=== PATIENT | male | born 1985 | race Caucasian/White ===

== ENCOUNTER 2020-07-16 14:00 | Outpatient (RCR) | payer OTHER, SELFPAY ==
--- NOTE | 2020-05-23 17:48 | MHC.PT.EP ---
[facility] [place] [facility] [place] [facility] [place] [facility] [address] Augusta Hinojosa [address] [phone] F: [phone] F: [phone] F: [phone] F: [phone] Physical Therapy Plan of Care Date of Evaluation: 05/23/20 Date of Surgery: Diagnosis: This is a 34 yo male presenting to skilled PT with a script for injury of low back. Assessment: This is a 34 yo male presenting to skilled PT with a script for injury of low back. Patient presented to the walk in clinic with a lower back injury that occurred on an overnight shift on 05/08/20. 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 Once he bent forward and lifted he felt the pain right away. Pain was located R side low back, posteriorly throughout the hamstrings B and he had R foot numbness (that ran along lateral aspect of the R foot). He reports that the numbness in the foot comes and goes now with sitting in a chair but in general he has been feeling improvement since incident. He also reports that his upper back is mainly stiff as of right now and he has low back symptoms. He was provided flexeril for muscle spasms but uses as needed as he does not like the feeling. He has mainly been using lidocaine patches and advil with light stretching for pain management. Assessment reveals pain that ranges to about a 3 at the worst. He is limited in end range hip mobility, decreased RLE strength and demos s/s as well as + special tests that are consistent with lumbar disc herniation and ? SIJ involvement. He also reports a past history of lumbar disc herniation as well. He is hypomobile in T-spine and lumbar spine and is tender along lumbar paraspinals. He is functionally limited in bending, lifting and normal work related tasks as well as home tasks of lifting daughter and gross movements in AM. At the eval he did not have the numbness in his foot was educated on [facility] extension program to trial for HEP. He is an excellent candidate for skilled PT 2x/wk for 5wks. Frequency and Duration: The patient will be seen 2x/wk for 5wks Short Term Goals: I in HEP Pain remains centralized for 1wk Demo good squatting without cuing from PT [facility] Goals: Demos functional BLE ROM and strength Improve oswestry by at least 10 points Demo good core control with dynamic work Undergo lift test without pain Return to work in full Treatment Plan: Modalities to reduce pain, spasms and effusion. Manual therapy to restore motion and function. Therapeutic exercise to improve strength and flexibility. Neuromuscular re-education for posture and balance. Therapeutic activities to return to functional activities of daily living. Electronically signed by: Laura Cuellar PT Please sign and return to therapist. Thank you for your referral.
--- NOTE | 2020-07-20 14:40 | MHC.PT.DC ---
[facility] [place] [facility] [place] [facility] [place] [facility] [address] Augusta Hinojosa [address] [phone] F: [phone] F: [phone] F: [phone] F: [phone] Physical Therapy Discharge Report Diagnosis: Injury of low back. Date of Surgery: NA Date of Evaluation: 05/23/20 Date of Discharge: 07/20/20 Treatments to Date: 13 Cancellations to Date: 2 No Shows to Date: 0 Discharge Status: Improved Function Independent with HEP Discharge Summary: Pt with some improvement with mechanical traction for first 2 sessions and then plateaued. He was unable to attend final visit due to scheduling issue and reports will d/c. He is d/c to I HEP at this time. Electronically signed by: Dejah Berger PT Please sign and return to therapist. Thank you for your referral.
== END 2020-07-20 14:41 | disposition home or self-care (01) ==
LOC: HO.PTCHIC 14:00
PROVIDERS: PCP Internal Medicine; Visit Provider Nurse Practitioner Family
DX: S39.92XD Unspecified injury of lower back, subsequent encounter (principal)
CPT/HCPCS: 97012; 97110; 97140; 97161; 97530

== ENCOUNTER 2022-11-20 14:27 | Outpatient (AMB) | payer OTHER, SELFPAY ==
--- NOTE | 2022-11-20 14:53 | AM.OFFWIN_ITS ---
Intake Vital Signs 11/20/22 14:56 BP 138/100 H Blood Pressure Location Rt brachial Position Sitting Pulse 82 Pulse Source Pulse Oximeter Temp 98.2 F Temp Source Temporal Artery Scan Pulse Oximetry (%) 95 Oxygen Delivery Method Room Air Intake Visit Reasons: EP STD screening (mirta) Intake Note: Patient here because he would like to be re checked for STDs. Patient Tobacco Use Status: Never used Tobacco Do you need a note to return to daycare/school/sports/work: No HPI HPI Comments History of Present Illness Details 29-year-old male who presents for STI screening. Patient reportedly had unprotected sex back in April and CT tested shortly thereafter but was told that given that it was within 4 months he might need a recheck for his HIV and hepatitis. He denies any symptoms at this time. [facility] Social History Patient Tobacco Use Status: Never used Tobacco Review of Systems Const All systems reviewed & are unremarkable except as noted in HPI and below Reports as per HPI Physical Exam Vital Signs: Last Vital Signs Temp 98.2 F 11/20/22 14:56 Pulse 82 11/20/22 14:56 BP 138/100 H 11/20/22 14:56 Pulse Ox 95 11/20/22 14:56 Oxygen Delivery Method Room Air 11/20/22 14:56 Const General: cooperative, well developed and alert Assessment & Plan Assessment & Plan (1) Routine screening for STI (sexually transmitted infection): Code(s): Z11.3 - Encounter for screening for infections with a predominantly sexual mode of transmission Plan Patient presents for STI screening no concerning findings on examination. Discharge instructions, follow up and treatment are discussed with patient in my usual fashion. Alternatives in treatment are also discussed. The patient will return for worsening symptoms or as needed. Advised that any labs/imaging ordered will be followed up on and contact made if further treatment needed. Counseled that patient's condition may require further evaluation and/or treatment. Symptoms of concern for worsening disorder discussed in detail in my customary manner. Patient does verbalize understanding of the plan, there are no apparent barriers to communication. The patient is given the opportunity to ask questions and have them answered to his/her satisfaction Orders: Orders HIV Ab/Ag Today Z11.3 - Encounter for screening for infections with a predominantly sexual mode of transmission CT NG by PCR Today Z11.3 - Encounter for screening for infections with a predominantly sexual mode of transmission Hepatitis B Profile Today Z11.3 - Encounter for screening for infections with a predominantly sexual mode of transmission Coding Level of Care Code Est Pt Level 2 (09868) Diagnoses Routine screening for STI (sexually transmitted infection) Z11.3
[2022-11-20 14:56] VITALS: BP 138/100; PULSE 82; TEMP 36.8; O2SAT 95
== END 2022-11-20 15:52 | disposition home or self-care (01) ==
PROVIDERS: PCP Internal Medicine; Visit Provider Physician Assistant
DX: Z11.3 Encounter for screening for infections with a predominantly sexual mode of transmission (principal)
CPT/HCPCS: 99212

== ENCOUNTER 2022-11-20 15:25 | Outpatient (REF) | payer OTHER, SELFPAY ==
[2022-11-21 13:00] LABS: CT PCR NOT DETECTED (Not Detect.); NG PCR NOT DETECTED (Not Detect.)
== END 2022-11-20 15:26 | disposition home or self-care (01) ==
LOC: HO.LAB 15:25
PROVIDERS: Visit Provider Physician Assistant
DX: Z20.2 Contact with and (suspected) exposure to infections with a predominantly sexual mode of transmission (principal)
CPT/HCPCS: 0353U

== ENCOUNTER 2022-11-24 11:28 | Outpatient (REF) | payer OTHER, SELFPAY ==
[2022-11-25 04:49] LABS: HBS Num1 190.84 mIU/mL (0-7.99); HBc Num1 0.08 S/CO (0.00-0.79); HIV AB/AG Nonreactive (Nonreactive); HIV Num 1 0.05 S/CO (0.00-0.99); Hepatitis B Core Antibody Nonreactive (Nonreactive); Hepatitis B Surface Antigen Negative (Negative); ~Hepatitis B Surface Antibody REACTIVE (Nonreactive)
== END 2022-11-24 11:29 | disposition home or self-care (01) ==
LOC: HO.HMGCLDS 11:28
PROVIDERS: PCP Internal Medicine; Visit Provider Physician Assistant
DX: Z11.3 Encounter for screening for infections with a predominantly sexual mode of transmission (principal); Z11.4 Encounter for screening for human immunodeficiency virus [HIV]
CPT/HCPCS: 36415; 86704; 86706; 87340; 87389

== ENCOUNTER 2023-01-29 08:24 | Outpatient (AMB) | payer OTHER, SELFPAY ==
[2023-01-29 08:40] VITALS: BP 148/98; PULSE 93; O2SAT 98; BMI 33.9
--- NOTE | 2023-01-29 08:40 | AM.OFFWIN_ITS ---
Intake Vital Signs 01/29/23 08:40 Height 6 ft 1 in Weight 257 lb BMI 33.9 BP 148/98 H Blood Pressure Location Lt brachial Position Sitting Pulse 93 Pulse Source Pulse Oximeter Pulse Oximetry (%) 98 Oxygen Delivery Method Room Air Intake Visit Reasons: EP STD check Intake Note: Patient here for ongoing issue that has been present since the beginning of the year. pt states he has bumps on penis which is very uncomfortable and mentioned it hurts more when the bumps/discoloration are present. Patient Tobacco Use Status: Never used Tobacco Allergies No Known Allergies Allergy (Verified 01/29/23 08:42) Do you need a note to return to daycare/school/sports/work: No HPI HPI Comments History of Present Illness Details 37-year-old male that presents for penil e rash. Patient had unprotected back in April. Since then he has had some discoloration the tip of his penis. He has been impaired. , his provider, dermatology, urology tried various methods but none have been successful. He has had multiple STD testing which have been negative. He has not been tested for herpes which he is requesting testing. Denies discharge urinary symptoms fever back pain PFSH Social History Patient Tobacco Use Status: Never used Tobacco Review of Systems Skin/Breast Details: Penile lesions Physical Exam Vital Signs: Last Vital Signs Pulse 93 01/29/23 08:40 BP 148/98 H 01/29/23 08:40 Pulse Ox 98 01/29/23 08:40 Oxygen Delivery Method Room Air 01/29/23 08:40 BMI result Body Mass Index 33.9 Const General: healthy appearing, comfortable, no acute distress and alert Orientation/consciousness: patient oriented x3 Limitations: no limitations HEENT Head: Yes normal to inspection Ears: hearing grossly normal bilaterally Resp Effort & Inspection: normal respiratory effort and able to speak in complete sentences Cardio Rate: regular rate Other: Small maculopapular lesions on the tip of the penis. Skin General skin exam: no rashes or lesions noted Neuro General: patient oriented x3 Extrem General: Yes normal to inspection Assessment & Plan Assessment & Plan (1) Penile lesion: Code(s): N48.9 - Disorder of penis, unspecified Plan Unclear etiology of patient's insert. Could present with HSV infection however will suspicion. Patient has had prior multiple STD testing has shown been negative. Will provide HSV testing and follow-up. Discharge instructions, follow up and treatment are discussed with patient in my usual fashion. Alternatives in treatment are also discussed. The patient will return for worsening symptoms or as needed. Advised that any labs/imaging ordered will be followed up on and contact made if further treatment needed. Counseled that patient's condition may require further evaluation and/or treatment. Symptoms of concern for worsening disorder discussed in detail in my customary manner. Patient does verbalize understanding of the plan, there are no apparent barriers to communication. The patient is given the opportunity to ask questions and have them answered to his/her satisfaction Orders: Orders Herpes Simplex Virus Ab IgG Today N48.9 - Disorder of penis, unspecified Coding Level of Care Code Est Pt Level 3 (09734) Diagnoses Penile lesion N48.9
== END 2023-01-29 09:32 | disposition home or self-care (01) ==
PROVIDERS: PCP Internal Medicine; Visit Provider Physician Assistant
DX: N48.9 Disorder of penis, unspecified (principal)
CPT/HCPCS: 99213

== ENCOUNTER 2023-01-29 09:32 | Outpatient (REF) | payer OTHER, SELFPAY ==
[2023-01-30 22:34] LABS: Herpes Simplex Type 1 IgG <0.90 index; Herpes Simplex Type 2 IgG <0.90 index
== END 2023-01-29 09:33 | disposition home or self-care (01) ==
LOC: HO.HMGCLDS 09:32
PROVIDERS: PCP Internal Medicine; Visit Provider Physician Assistant
DX: N48.9 Disorder of penis, unspecified (principal); R21 Rash and other nonspecific skin eruption
CPT/HCPCS: 36415; 86695; 86696